=== PATIENT | female | born 1950 ===

== ENCOUNTER 2019-01-26 16:44 | Inpatient (IN) | payer MEDICARE, MEDICAID ==
[~2019-01-26] VITALS: Ht 167.6 cm; Wt 84.0 kg
--- NOTE | 2019-01-26 17:30 | NUR ---
DR GREER AT BEDSIDE TO TALK WITH PT, HE FELT A FAINT IRREGULAR PULSE TO RT FOOT, PT C/O "ACHE" TO BACK OF CALF, "AND MY FOOT WAS ICE COLD LAST NIGHT...I HAD A HARD TIME SLEEPING" PT ALSO SAID SHE COULD 10-20 FEET BEFORE PAIN WAS TOO MUCH,
--- NOTE | 2019-01-26 17:30 | NUR ---
ASKED PA IF SHE WOULD LIKE TO WAIT TO GET PTT RESULTS BACK BEFORE RUNNING HEPARIN AND PREFERRED TO HAVE THE HEPARIN RUNNING.
--- NOTE | 2019-01-26 17:40 | NUR ---
CRYSTAL-DAUGHTER: [phone]
[2019-01-26 17:48] LABS: BASOPHILS # (AUTO) 0.1 X10'3 (0-0.2); BASOPHILS % (AUTO) 1.5 % (0-1); EOSINOPHILS # (AUTO) 0.2 X10'3 (0-0.9); EOSINOPHILS % (AUTO) 2.5 % (0-6); HEMATOCRIT 44.4 % (35.0-45.0); HEMOGLOBIN 14.9 g/dl (12.0-16.0); LYMPHOCYTES # (AUTO) 2.1 X10'3 (1.1-4.8); LYMPHOCYTES % (AUTO) 25.7 % (21-51); MEAN CORPUSCULAR HEMOGLOBIN 31.4 PG (27.0-31.0); MEAN CORPUSCULAR HGB CONC 33.6 g/dL (33.0-36.5); MEAN CORPUSCULAR VOLUME 93.5 FL (78-98); MEAN PLATELET VOLUME 8.1 FL (7.4-10.4); MONOCYTES # (AUTO) 0.4 X10'3 (0-0.9); MONOCYTES % (AUTO) 5.1 % (2-12); NEUTROPHILS # (AUTO) 5.4 X10'3 (1.8-7.7); NEUTROPHILS % (AUTO) 65.2 % (42-75); PLATELET COUNT 240 X10'3 (140-440); RED BLOOD COUNT 4.75 X10'6 (4.20-5.60); RED CELL DISTRIBUTION WIDTH 15.1 % (11.5-14.5); WHITE BLOOD COUNT 8.3 X10'3 (4.5-11.0)
[2019-01-26] MEDS: heparin 25,000 UNIT/250ml bag 250 ML IV SCH ×2 (17:49→19:31)
[2019-01-26] MEDS ORDERED: mag hydrox/Alum hydrox/simeth 30ml oral suspension PO PRN (17:55)
[2019-01-26] MEDS ORDERED: HYDROcodone/acetaminophen 5mg/325mg tablet PO PRN (17:55)
[2019-01-26] MEDS ORDERED: HYDROcodone/acetaminophen 10/325mg tab PO PRN (17:55)
[2019-01-26] MEDS ORDERED: ondansetron/PF 4mg/2ml inj IV PRN (17:55)
[2019-01-26] MEDS ORDERED: acetaminophen 325mg tablet PO PRN ×2 (17:55)
[2019-01-26] MEDS ORDERED: magnesium hydroxide 30ml (MOM) UD suspension PO PRN (17:55)
[2019-01-26] MEDS ORDERED: morphine 2 MG/ML inj. syringe IV PRN ×2 (17:55)
[2019-01-26] MEDS ORDERED: LEVO125T PO (17:57)
[2019-01-26] MEDS ORDERED: BUPR150T14 PO (17:57)
[2019-01-26] MEDS ORDERED: AMLO-314 PO (17:57)
[2019-01-26 17:58] LABS: ALANINE AMINOTRANSFERASE 43 U/L (12-78); ALBUMIN 3.4 G/DL (3.4-5.0); ALBUMIN/GLOBULIN RATIO 1.1 (1.1-1.5); ALKALINE PHOSPHATASE 80 IU/L (46-116); ANION GAP 10 (8-16); ASPARTATE AMINO TRANSFERASE 56 U/L (10-37); BILIRUBIN,TOTAL 0.5 MG/DL (0.1-1.0); BLOOD UREA NITROGEN 10 MG/DL (7-18); BUN/CREATININE RATIO 11.8 (6.6-38.0); CALCIUM 8.6 MG/DL (8.5-10.1); CHLORIDE 105 MMOL/L (99-107); CREATININE 0.85 MG/DL (0.40-0.90); GLUCOSE 125 MG/DL (70-104); SODIUM 139 MMOL/L (135-145); TOTAL CARBON DIOXIDE 24.1 MMOL/L (24-32); TOTAL PROTEIN 6.6 G/DL (6.4-8.2); eGFR 67 ML/MIN
[2019-01-26 18:22] LABS: PARTIAL THROMBOPLASTIN TIME 98 SECONDS (22-32)
--- NOTE | 2019-01-26 18:28 | NUR ---
Patient's PTT 98 infusion held 60min per protocol will be restarted at 1300u/h
[2019-01-26 21:10] VITALS: BP 165/75
[2019-01-26] MEDS: buPROPion SR 150mg tablet PO SCH (21:28)
[2019-01-27] VITALS (14 sets, daily range): BP systolic 118–158; BP diastolic 58–85
[2019-01-27] MEDS: heparin 25,000 UNIT/250ml bag 250 ML IV SCH (02:35)
[2019-01-27 06:04] LABS: BASOPHILS # (AUTO) 0.1 X10'3 (0-0.2); BASOPHILS % (AUTO) 1.1 % (0-1); EOSINOPHILS # (AUTO) 0.3 X10'3 (0-0.9); EOSINOPHILS % (AUTO) 3.4 % (0-6); HEMOGLOBIN 14.2 g/dl (12.0-16.0); LYMPHOCYTES # (AUTO) 2.7 X10'3 (1.1-4.8); LYMPHOCYTES % (AUTO) 28.2 % (21-51); MEAN CORPUSCULAR HEMOGLOBIN 31.9 PG (27.0-31.0); MEAN CORPUSCULAR HGB CONC 33.9 g/dL (33.0-36.5); MEAN CORPUSCULAR VOLUME 94.2 FL (78-98); MEAN PLATELET VOLUME 8.6 FL (7.4-10.4); MONOCYTES # (AUTO) 0.8 X10'3 (0-0.9); MONOCYTES % (AUTO) 8.2 % (2-12); NEUTROPHILS # (AUTO) 5.7 X10'3 (1.8-7.7); NEUTROPHILS % (AUTO) 59.1 % (42-75); PLATELET COUNT 206 X10'3 (140-440); RED BLOOD COUNT 4.46 X10'6 (4.20-5.60); WHITE BLOOD COUNT 9.7 X10'3 (4.5-11.0)
--- NOTE | 2019-01-27 06:24 | NUR ---
Problems reprioritized. Patient report given, questions answered & plan of care reviewed with GISEL HARDY AND GISEL FITZPATRICK.
[2019-01-27 06:31] LABS: ANION GAP 11 (8-16); BLOOD UREA NITROGEN 10 MG/DL (7-18); CHLORIDE 107 MMOL/L (99-107); CREATININE 0.83 MG/DL (0.40-0.90); GLUCOSE 121 MG/DL (70-104); POTASSIUM 3.9 MMOL/L (3.5-5.1); SODIUM 139 MMOL/L (135-145); TOTAL CARBON DIOXIDE 20.9 MMOL/L (24-32); eGFR 69 ML/MIN
[2019-01-27 06:32] LABS: ALBUMIN 3.1 G/DL (3.4-5.0); CALCIUM 8.5 MG/DL (8.5-10.1); CHOL/HDL RATIO 4.6 (0.00-4.99); CHOLESTEROL 190 MG/DL (0-200); HDL CHOLESTEROL 41 MG/DL (35-60); LDL CHOLESTEROL 127 MG/DL (50-100); TRIGLYCERIDES 170 MG/DL (20-135)
--- NOTE | 2019-01-27 06:34 | NUR ---
Patient in room ORTHO 4022. I have received report from Pamela BATRES and had the opportunity to ask questions and assume patient care.
--- NOTE | 2019-01-27 06:44 | NUR ---
0850 DVT PTT WAS DRAWN AT 0520 BY LAB. I REORDER DVD PTT AT 0835 TO BE RE-DRAWN AT THE RIGHT TIME.
[2019-01-27] MEDS ORDERED: levoTHYROXINE 125mcg tablet PO SCH (08:00)
[2019-01-27] MEDS ORDERED: rocuronium 10mg/ml inj IV ONE (08:00)
[2019-01-27] MEDS ORDERED: etomidate 2mg/ml inj. ONE (08:00)
[2019-01-27] MEDS ORDERED: amLODIPine 5mg tablet PO SCH (08:00)
[2019-01-27] MEDS: buPROPion SR 150mg tablet PO SCH ×2 (09:07→19:50)
[2019-01-27] MEDS ORDERED: midazolam 2 mg/2 ml injection ONE ×2 (09:53→10:25)
[2019-01-27] MEDS ORDERED: iohexol 300mg/ml 100ml inj. ONE (09:53)
[2019-01-27] MEDS ORDERED: LIDOcaine 1%/PF 5ML 10 MG/ML VIAL ONE (09:53)
[2019-01-27] MEDS ORDERED: fentaNYL/PF 50MCG/1 ML 2ML syringe ONE ×2 (09:54→10:25)
[2019-01-27] MEDS ORDERED: heparin 1,000 UNITS/NS 500ml 500 ML ONE (09:54)
--- NOTE | 2019-01-27 09:55 | NUR ---
Nurse came to mushroom picker patient to angio. The nurse was notified of the PTT of 77 and said they will adjust heparin.
--- NOTE | 2019-01-27 10:51 | NUR ---
Yasmani 5199 Re: Makayla. Pt is transfering to ICU room # 213.
--- NOTE | 2019-01-27 11:02 | NUR ---
Problems reprioritized. Patient report given, questions answered & plan of care reviewed with Evy BATRES.
--- NOTE | 2019-01-27 11:30 | NUR ---
Pt arrived from IR with TPA to sheath and TPA to transfusion catheter. No other medications running at this time. Heparin d/c'd. PT alert and oriented. Complaining of R leg pain. All BLE pulses heard with doppler. Pt states she is hungry and thirsty. No other complaints at this time. VSS. BL feet feel slightly cool to the touch.
[2019-01-27] MEDS: tPA-cathflo 2mg/2ml IV flush 4 MG in normal saline 100ml IV soln 100 ML ICATH SCH ×3 (12:19→18:19)
[2019-01-27] MEDS ORDERED: CADD PCA waste documentation MC SCH (13:30)
[2019-01-27] MEDS: HYDROmorphone/NS 1 mg/ml CADD 50 ML IV SCH ×6 (13:55→23:00)
[2019-01-27 16:45] LABS: HEMATOCRIT 44.2 % (35.0-45.0); HEMOGLOBIN 14.6 g/dl (12.0-16.0); MEAN CORPUSCULAR HEMOGLOBIN 30.9 PG (27.0-31.0); MEAN CORPUSCULAR VOLUME 93.7 FL (78-98); MEAN PLATELET VOLUME 8.5 FL (7.4-10.4); PLATELET COUNT 237 X10'3 (140-440); RED BLOOD COUNT 4.72 X10'6 (4.20-5.60); RED CELL DISTRIBUTION WIDTH 15.2 % (11.5-14.5); WHITE BLOOD COUNT 15.2 X10'3 (4.5-11.0)
--- NOTE | 2019-01-27 18:20 | NUR ---
Problems reprioritized. Patient report given, questions answered & plan of care reviewed with GISEL Tate.
--- NOTE | 2019-01-27 18:25 | NUR ---
Patient in room CICU 2013. I have received report from Evy BATRES, and had the opportunity to ask questions and assume patient care.
--- NOTE | 2019-01-27 19:45 | NUR ---
PT is resting in bed with no s/s of distress noted at this time. VSS. PT states Pain is much improved, PT has Dialudid CADD and button is within reach. PT has sheath to LT groin, site is CDI and without Hematoma. PT has bilateral Doppler peripheral pulses. Bed is locked and low. Call light is within reach. Will continue to monitor.
[2019-01-27 22:58] LABS: HEMATOCRIT 45.7 % (35.0-45.0); HEMOGLOBIN 15.1 g/dl (12.0-16.0); MEAN CORPUSCULAR HEMOGLOBIN 31.4 PG (27.0-31.0); MEAN CORPUSCULAR VOLUME 95.2 FL (78-98); MEAN PLATELET VOLUME 8.4 FL (7.4-10.4); PLATELET COUNT 234 X10'3 (140-440); WHITE BLOOD COUNT 13.4 X10'3 (4.5-11.0)
[2019-01-28] VITALS: BP 130/76
[2019-01-28] MEDS: tPA-cathflo 2mg/2ml IV flush 4 MG in normal saline 100ml IV soln 100 ML ICATH SCH (00:22)
[2019-01-28 01:00] VITALS: BP 129/76
[2019-01-28 02:00] LABS: ABG BASE EXCESS -5.6 mmol/L (-2.0-3.0); ABG OXYGEN SATURATION 92.1 % (95-98); ABG PCO2 (T) 44.7 mmHg (35.0-45.0); ABG PH (T) 7.289 (7.350-7.450); ABG PO2 (T) 66.9 mmHg (83-108); FCOHb 0.9 % (0.5-1.5); FLOW 2 L/min; FMetHb 0.1 % (0.3-1.12); FO2Hb 91.2 % (94-100); RESPIRATORY RATE (OBSERVED) 16 b/min; TOTAL HEMOGLOBIN 14.9 G/dl (12.0-16.0)
--- NOTE | 2019-01-28 02:05 | NUR ---
Responded to stroke alert CICU 2012, pt has flaccid left side, aphasia. forced gaze preference to left. She had tPA infusing to arterial line left groin for occluded lower extremity. tPA off and transported to CT scan. B/P stable.
[2019-01-28 02:12] LABS: BASOPHILS # (AUTO) 0.1 X10'3 (0-0.2); BASOPHILS % (AUTO) 0.6 % (0-1); EOSINOPHILS % (AUTO) 0 % (0-6); HEMATOCRIT 44.1 % (35.0-45.0); HEMOGLOBIN 14.6 g/dl (12.0-16.0); MEAN CORPUSCULAR HEMOGLOBIN 31.5 PG (27.0-31.0); MEAN CORPUSCULAR HGB CONC 33.1 g/dL (33.0-36.5); MEAN PLATELET VOLUME 8.2 FL (7.4-10.4); MONOCYTES # (AUTO) 0.9 X10'3 (0-0.9); MONOCYTES % (AUTO) 5.9 % (2-12); NEUTROPHILS % (AUTO) 87.5 % (42-75); PLATELET COUNT 229 X10'3 (140-440); RED BLOOD COUNT 4.65 X10'6 (4.20-5.60); RED CELL DISTRIBUTION WIDTH 15.4 % (11.5-14.5)
[2019-01-28 02:15] LABS: ALBUMIN 3.6 G/DL (3.4-5.0); ANION GAP 10 (8-16); BLOOD UREA NITROGEN 16 MG/DL (7-18); BUN/CREATININE RATIO 14.4 (6.6-38.0); CALCIUM 8.9 MG/DL (8.5-10.1); CHLORIDE 104 MMOL/L (99-107); CREATININE 1.11 MG/DL (0.40-0.90); GLUCOSE 171 MG/DL (70-104); POTASSIUM 5.3 MMOL/L (3.5-5.1); SODIUM 137 MMOL/L (135-145); TOTAL CARBON DIOXIDE 22.9 MMOL/L (24-32); eGFR 49 ML/MIN
--- NOTE | 2019-01-28 02:30 | NUR ---
CT complete to evidence of bleed. Request order for CTA. Pt transferred to [address] scanner Request films pushed to [facility] and [facility] pacs
[2019-01-28] MEDS ORDERED: iohexol 350MG/ML 100ml bottle IV ONE ×3 (02:33→03:04)
[2019-01-28 02:41] LABS: PARTIAL THROMBOPLASTIN TIME 27 SECONDS (22-32)
--- NOTE | 2019-01-28 03:40 | NUR ---
Delays in CTA due to infiltrated IV x2 Pt now back in room, no change in condition,, Dr. Farmer from SOC examines pt via telemedicine. 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 Sissy Charge nurse on phone with transfer center to facilitate transfer.
[2019-01-28 04:00] VITALS: BP 142/85
--- NOTE | 2019-01-28 04:00 | NUR ---
Daughters Saranya and Lilliam notified of change in condition.
--- NOTE | 2019-01-28 04:27 | NUR ---
Pt has been excepted by Dr. Song at [facility], awaiting EMS for transport.
[2019-01-28 04:30] VITALS: BP 163/90
--- NOTE | 2019-01-28 05:40 | NUR ---
Resource nurse informed primary nursing of possible change in PT condition. Left lunch break early to assess PT. Assessed PT and was found to have major change. PT has vomited, PT was found be non verbally responsive, had a fixed upward gaze to RT, RT sided facial droop and flaccid on entire left side. Charge nurse notified, JOSE Hernandez was on unit. Stroke alert was called. Dr. Chung was was the on-call IR MD to update him on PT condition, received order to turn tPA infusions off and to start NS at TKO of 10ml/hr to keep lines open and he requested to be called with an update once CT results available. PT was taken down for STAT head CT, then for CTA. There was a delay during the CTA, 2 IV's infiltrated. PT tolerated transport well. VSS remained stable through entirely of event. Once back at bedside Tele Valentin MURRAY was called, d/t type of stroke and PT having a Fibrinogen level was 145 and was not a candidate for large dose tPA and recommended transporting to Hospital with immediate intervention capabilities. Arrangements made to transfer PT to [facility] where she was taken via ambulance through ED to IR. Primary nurse went with PT for transport d/t having Femoral sheath. PTs VSS remained stable through entirely of event.
== END 2019-01-28 05:10 | disposition short-term general hospital (02) | DRG 299 ==
LOC: ER 16:46 → EDBEDREQSVC 20:24 → ORTHO 4S 21:42 → CMPBEDREQ 23:18 → CICU 2S 01-27 11:35
PROVIDERS: ADMIT Internal Medicine; ATTEND Internal Medicine
PROC: B44FZZZ Ultrasonography of Right Lower Extremity Arteries (ICD-10-PCS; principal; 2019-01-27)
PROC: 3E05317 Introduction of Other Thrombolytic into Peripheral Artery, Percutaneous Approach (ICD-10-PCS; 2019-01-27)
PROC: B41F1ZZ Fluoroscopy of Right Lower Extremity Arteries using Low Osmolar Contrast (ICD-10-PCS; 2019-01-27)
PROC: BW281ZZ Computerized Tomography (CT Scan) of Head using Low Osmolar Contrast (ICD-10-PCS; 2019-01-28)
DX: I74.3 Embolism and thrombosis of arteries of the lower extremities (principal); I63.519 Cerebral infarction due to unspecified occlusion or stenosis of unspecified middle cerebral artery; D68.59 Other primary thrombophilia; E03.9 Hypothyroidism, unspecified; F17.200 Nicotine dependence, unspecified, uncomplicated; F32.9 Major depressive disorder, single episode, unspecified; E07.9 Disorder of thyroid, unspecified; Z79.82 Long term (current) use of aspirin; Z79.899 Other long term (current) drug therapy
CPT/HCPCS: 36160; 36415; 36600; 70450; 70496; 75630; 76937; 77001; 80048; 80053; 80061; 82803; 82948; 83605; 85018; 85025; 85027; 85384; 85610; 85730; 87081; 93306; 99152; 99153; 99291; C1769; C1894; G0378; J1170; J1644; J2250; J2270; J2405; J2997; J3010; Q9967